=== PATIENT | female | born 1975 | race Caucasian/White ===

== ENCOUNTER 2024-05-31 21:45 | Emergency (ER) | payer OTHER, SELFPAY ==
[2024-05-31 21:47] VITALS: BP 162/75; PULSE 53; RESP 16; TEMP 36.9; O2SAT 94; BMI 36.3
--- NOTE | 2024-05-31 22:15 | ED.VIS.GI ---
HPI HPI - GI History of Present Illness Chief Complaint: Abd Pain Informant: patient Abdominal Pain/Flank Pain Onset: Days (3) Context: Gradual Onset Timing: Waxes and wanes Quality: Cramping Location: RLQ and LLQ Worsened by: Nothing Relieved by: - (Vomiting) Nausea/Vomiting/Emesis GI Symptom: Positive for Nausea and Vomiting Diarrhea/Melena/Hematochezia GI Symptom: Negative for Diarrhea, Melena or Hematochezia Associated Symptoms Associated Symptoms: Negative for Dysuria, Frequency or Hematuria Narrative Narrative: Patient presents with abdominal pain that has been getting worse for the last 3 days. Patient states it has been waxing and waning today. Patient states she went to [facility] emergency department earlier today. Patient states she had a CT scan done there of her abdomen pelvis which showed early small bowel obstruction. Patient was seen by general surgery in the emergency department there. General surgery said that since she was having stools in her colostomy, there was no bowel obstruction. Patient was discharged home. Patient was told to return if she had any worsening pain, nausea, or vomiting. Patient started having more nausea, vomiting, and abdominal pain. Patient did not want to go back to [facility] and was brought here by EMS. Patient denies any hematemesis or coffee-ground emesis. Patient denies any melena or hematochezia. [facility] Medical History (Updated 06/01/24 @ 01:[address] William Yo, ) Colostomy in place Colon cancer Home Medications ?Medication ?Instructions ?Recorded ?Last Taken ?Type empagliflozin 10 mg tablet 10 mg PO DAILY 05/31/24 Unknown History (Jardiance) ciprofloxacin HCl 500 mg tablet 500 mg PO BID #6 TABLETS 06/01/24 Unknown Rx dicyclomine 10 mg capsule 20 mg (2 x 10 mg) PO TIDAC #20 06/01/24 Unknown Rx CAPSULES ondansetron 4 mg disintegrating 4 mg PO Q8H PRN PRN Nausea #10 tabs 06/01/24 Unknown Rx tablet Allergy/AdvReac Type Severity Reaction Status Date / Time amoxicillin AdvReac Mild N/V Verified 05/31/24 21:54 Surgical History (Updated 05/31/24 @ 22:[address] William Yo, ) Hx of colostomy History of colon resection Social History Smoking Status: Never smoker ROS ROS ED Constitutional Constitutional ED: Denies chills or fever(s) Eyes Eyes: Denies blurry vision or change in vision ENT ENT ED: Denies rhinorrhea or sore throat Cardiovascular Cardiovascular: Denies chest pain or palpitations Respiratory/Chest Respiratory/Chest: Denies cough or dyspnea Gastrointestinal Gastrointestinal: Reports abdominal pain, nausea and vomiting; Denies diarrhea or melena Genitourinary Genitourinary ED: Denies dysuria or hematuria Musculoskeletal Musculoskeletal: Denies back pain or neck pain Integumentary Denies abscess or rash Neurologic Neurologic: Denies headache(s) or weakness Allergic/Immunologic Allergic/Immunologic ED: Denies mouth swelling or urticaria EXAM Physical Exam Const Vital Signs: 05/31/24 21:47 05/31/24 23:46 Temperature 98.5 F Temperature Source Oral Pulse Rate 53 L 43 L Respiratory Rate 16 16 Blood Pressure 162/75 H 154/73 H Blood Pressure Mean 104 100 Pulse Ox 94 97 Oxygen Delivery Method Room Air Positive well nourished and well developed General Appearance ED: well developed and NAD HEENT Reports moist mucous membranes Neck supple and no JVD Resp normal respiratory effort and clear to auscultation bilaterally Cardio regular rate and regular rhythm GI non-distended Palpation: soft and tender LLQ, RLQ and suprapubic; Negative for guarding or rebound tenderness present Extremity full ROM General Extremety ED: Negative for edema or tenderness General Extremity: Negative for edema Neuro CN's II-XII intact bilaterally, moves all extremities and no sensory deficits noted Sensorium / Orientation: alert Motor Exam: strength 5/5 throughout Psych mental status grossly normal MDM MDM MDM Narrative Medical decision making narrative: Differential diagnosis includes bowel obstruction, perforation, dehydration, urinary tract infection, electrolyte abnormality, and viral illness. CBC will be obtained to assess for leukocytosis and anemia. Comprehensive metabolic profile will be obtained to assess for hepatic function, renal function, and electrolyte abnormality. Urinalysis will be obtained to assess for urinary tract infection and hematuria. Patient had a serum hCG performed earlier today. I do not feel this needs to be repeated. Patient had a CT scan of her abdomen pelvis with IV contrast earlier today. Because of this, a noncontrast CT scan of the abdomen and pelvis will be obtained to assess for bowel obstruction and perforation. Lab Data Attestation: I reviewed the patient's lab results. Lab results narrative: CBC was reviewed. There is a mild leukocytosis of 14.0. The remainder was within normal limits. Comprehensive metabolic profile was reviewed. Glucose was mildly elevated at 140. The remainder was within normal limits. Urinalysis was reviewed. Urine ketones are 150. There are positive nitrates. Leukocyte esterase was 25. There is 1+ bacteria. There are 0 white blood cells noted. There are 0 epithelial cells noted. Labs: Laboratory Results - last 24 hr 05/31/24 05/31/24 22:03 22:42 WBC 14.0 H RBC 5.21 Hgb 15.0 Hct 45.5 MCV 87.3 MCH 28.8 MCHC 33.0 RDW Std Deviation 41.2 RDW Coeff of Juan M 12.9 Plt Count 255 MPV 11.5 Immature Gran % (Auto) 0.400 Neut % (Auto) 86.8 H Lymph % (Auto) 7.6 L [place] % (Auto) 4.1 Eos % (Auto) 0.9 Baso % (Auto) 0.2 Absolute Neuts (auto) 12.1 H Absolute Lymphs (auto) 1.06 Nucleated RBC % 0 Sodium 139 Potassium 3.6 Chloride 102 Carbon Dioxide 30.0 Anion Gap 7 BUN 9 Creatinine 0.79 Estim Creat Clear Calc 103.78 Est GFR (MDRD) Af Amer 100 Est GFR (MDRD) Non-Af 83 BUN/Creatinine Ratio 11.4 Glucose 140 H Calcium 9.2 Total Bilirubin 0.80 AST 24 ALT 35 Alkaline Phosphatase 101 Total Protein 7.3 Albumin 3.7 Globulin 3.6 Albumin/Globulin Ratio 1.0 Urine Color Yellow Urine Clarity Clear Urine pH 5.0 Ur Specific [place] 1.020 Urine Protein 30 H Urine Glucose (UA) 1000 H Urine Ketones 150 A* Urine Occult Blood Negative Urine Nitrite Positive H Urine Bilirubin 1 H Urine Urobilinogen 4 H Ur Leukocyte Esterase 25 H Urine RBC 0 SEEN Urine WBC 0 SEEN Ur Squamous Epith Cells 0 SEEN Urine Bacteria 1+ Urine Mucus 0 SEEN Radiography Diagnostic Testing: Clinical Impression(s) from Imaging Studies Abdomen/Pelvis CT 05/31/24 22:32 IMPRESSION: There is 17 cm abdominal wall hernia at the colostomy site containing multiple small bowel loops and part of the colon. There is wall thickening of mid ileal small bowel loops within the hernia sac suggesting inflammatory bowel disease. There is dilatation of small bowel loops in the proximal ileum and distal jejunum suggesting partial obstruction due to inflammatory bowel disease. Electronically Signed: Lillie Chase MD at 23:21 EDT , CT scan of the abdomen and pelvis was obtained. There is a 17 cm abdominal wall hernia at the colostomy site containing multiple small bowel loops. There is some wall thickening within the hernia suggesting inflammatory bowel disease. There is dilatation of small bowel loops in the proximal ileum and distal jejunum suggesting partial obstruction due to the inflammatory bowel disease. This was interpreted by the radiologist and was also independently reviewed by myself. Treatment and Re-Evaluation :: Patient is given IV fluids, Bentyl, and Zofran. Patient was given p.o. fluids and was able to tolerate them well. Patient is feeling better on reevaluation. I discussed the findings with the patient. Patient was advised that there is no indication for emergency surgery at this time. Patient was advised of her urine results. Patient will be given a prescription for a short course of Cipro pending culture results. Patient will be given prescriptions for Bentyl and Zofran. Patient was instructed to follow-up with her primary care physician and surgeon in 3 to 5 days. Patient was instructed to return if worse in any way. Patient understood and was agreeable with the plan. All questions were answered. Discharge Plan Triage Chief Complaint: Abd Pain ED Provider: William Yo Dx/Rx/DC Orders Clinical Impression: Inflammatory bowel diseases (IBD), Abdominal pain, Urinary tract infection Instructions: ED Abdominal Pain Unkn Cause Fem, ED Cystitis Female Adult Prescriptions: New ciprofloxacin HCl 500 mg tablet 500 mg PO BID Qty: 6 0RF ondansetron 4 mg tablet,disintegrating 4 mg PO Q8H PRN PRN (Reason: Nausea) Qty: 10 0RF dicyclomine 10 mg capsule 20 mg PO TIDAC Qty: 20 0RF No Action Jardiance 10 mg tablet 10 mg PO DAILY Primary Care Provider: Care Physician,No Primary Referrals: NOT,DEFINED [Non-Staff] - 3-5 Days Activity Restrictions/Additional Instructions: Follow-up with your primary care physician and surgeon in 3 to 5 days for reevaluation. Print Language: Jamaican Disposition Disposition: Home, Self Care
--- NOTE | 2024-05-31 22:32 | CT_ITS ---
INDICATION: Pain EXAMINATION: CT ABDOMEN AND PELVIS WITHOUT CONTRAST - CT Abdomen And Pelvis W/O Contrast Injection TECHNIQUE: Helically acquired images were obtained of the abdomen and pelvis without oral or IV contrast. The protocol utilizes one or more of the following dose reduction techniques: automated exposure control, adjustment of mA and/or kV according to patient size,and/or use of iterative reconstruction technique. IV Contrast dosage and agent: None. Oral contrast: None. RADIATION DOSAGE (If Supplied By Facility): CTDIvol = ( 19.33 ) mGy, DLP = ( 1028.89 ) mGycm COMPARISON: No relevant prior comparison study available FINDINGS: LOWER CHEST: Lung bases are clear. No cardiomegaly or pericardial effusion. LIVER: Homogeneous. No focal mass. GALLBLADDER AND BILIARY TREE: No calcified gallstones. No gallbladder distension or wall edema. No intra- or extrahepatic biliary ductal dilation. PANCREAS: No focal cystic or solid mass. SPLEEN: Normal size without focal cystic or solid mass. ADRENAL GLANDS: No nodules. KIDNEYS AND URETERS: Normal renal size and position. No hydronephrosis. PERITONEUM: No ascites or free air. No other fluid collection. BOWEL: No evidence of acute appendicitis. There is wall thickening of mid ileal small bowel loops within the hernia sac suggesting inflammatory bowel disease. There is dilatation of small bowel loops in the proximal ileum and distal jejunum suggesting partial obstruction due to inflammatory bowel disease. LYMPH NODES: No enlarged mesenteric or retroperitoneal lymph nodes. VESSELS: Aorta is non-dilated. URINARY BLADDER: Unremarkable. REPRODUCTIVE ORGANS: No pelvic masses. ABDOMINAL WALL: There is left lower quadrant colostomy. There is abdominal wall hernia at the colostomy site containing multiple small bowel loops and part of the colon. The hernia measures approximately 17 cm in diameter. There is wall thickening of mid ileal small bowel loops within the hernia sac suggesting inflammatory bowel disease. There is dilatation of small bowel loops in the proximal ileum and distal jejunum suggesting partial obstruction due to inflammatory bowel disease. BONES: No lytic or blastic abnormality. CT/Abdomen/Pelvis without Cont IMPRESSION: There is 17 cm abdominal wall hernia at the colostomy site containing multiple small bowel loops and part of the colon. There is wall thickening of mid ileal small bowel loops within the hernia sac suggesting inflammatory bowel disease. There is dilatation of small bowel loops in the proximal ileum and distal jejunum suggesting partial obstruction due to inflammatory bowel disease. Electronically Signed: Lillie Chase MD at 23:21 EDT ,
[2024-05-31 22:39] LABS: Absolute Lymphocyte Count 1.06 X10^3/uL (0.83-4.51); Absolute Neutrophil Count 12.1 X10^3/uL (2.0-7.7); Basophil# 0.03 X10^3/uL; Basophil% 0.2 % (0-1); Eosinophil# 0.13 X10^3/uL; Eosinophils% 0.9 % (0-5); Hematocrit 45.5 % (37-47); Lymphocyte # 1.06 X10^3/ul (0.83-4.51); Lymphocyte % 7.6 % (19-41); Mean Corpuscular Hgb 28.8 pg (27.0-32.0); Mean Corpuscular Volume 87.3 fL (81-99); Mean Platelet Vol. 11.5 fl (6.2-12.0); Monocyte# 0.58 X10^3/uL; Monocyte% 4.1 % (0-10); NRBC Flagged by Analyzer 0 % (0-5); Neutrophil # 12.13 X10^3/uL (2.7-7.7); Neutrophil % 86.8 % (47-70); Platelet Count 255 K/mm3 (150-450); RBC Distribution Width CV 12.9 % (11.6-14.6); RBC Distribution Width SD 41.2 fl (35.1-43.9); Red Blood Count 5.21 M/mm3 (4.2-5.4)
[2024-05-31 22:47] LABS: Mucous, Urine 0 SEEN /hpf (<or=2+); Red Blood Cells-Urine 0 SEEN /hpf (0-5); Squamous Epithelial Cells - UA 0 SEEN /hpf (5-10); White Blood Cells 0 SEEN /hpf (0-5)
[2024-05-31 22:48] LABS: Color, Urine Yellow (Yellow); Glucose, Dipstick 1000 mg/dl (Normal); Leukocyte Esterase-Dipstick 25 /ul (Negative); Nitrite-Dipstick Positive (Negative); Occult Blood-Urine Negative /ul (Negative); Protein-Dipstick 30 mg/dl (Negative); Urine Clarity Clear (Clear); Urine Urobilinogen 4 mg/dl (Normal)
[2024-05-31] MEDS: 0.9% Normal Saline (1000mL) 1,000 ML 999 ML IV (22:48)
[2024-05-31] MEDS: Ondansetron 4 MG/2 ML Vial IV (22:48)
[2024-05-31] MEDS: Dicyclomine 20 MG/2 ML Vial IM (22:48)
[2024-05-31 22:57] LABS: AST(SGOT) 24 U/L (15-37); Alanine Aminotransfer ALT/SGPT 35 U/L (13-56); Albumin, Serum 3.7 g/dL (3.2-5.0); Alkaline Phosphatase 101 U/L (45-117); Anion Gap 7 (5-15); BUN 9 mg/dL (7-18); BUN/Creat Ratio 11.4 RATIO (10-20); Calcium,Total 9.2 mg/dL (8.5-10.1); Chloride 102 mmol/L (98-107); Creatinine, Serum 0.79 mg/dL (0.55-1.02); EST Glomerular Filtration Rate 83 mL/min (>60); Est Glom Filt Rate - Afr Amer 100 mL/min (>60); Estimated Creatinine Clearance 103.78 ml/min; Globulin 3.6 g/dL (2.2-4.2); Glucose 140 mg/dL (74-106); Potassium 3.6 mmol/L (3.5-5.1); Protein, Total 7.3 g/dL (6.4-8.2); Sodium Level 139 mmol/L (136-145)
[2024-05-31 23:39] LABS: Urine Bilirubin Dipstick 1 mg/dL (Negative)
[2024-05-31 23:40] LABS: Bacteria 1+ /hpf (None Seen); Ketone-Dipstick 150 mg/dl (Negative)
[2024-05-31 23:46] VITALS: BP 154/73; PULSE 43; RESP 16; O2SAT 97
[2024-06-01 01:00] VITALS: BP 147/68; PULSE 52; RESP 16; O2SAT 95
[2024-06-01] MEDS: Ciprofloxacin 500 MG Tablet PO (01:40)
== END 2024-06-01 01:49 | disposition home or self-care (01) ==
PROVIDERS: Emergency Provider Emergency Medicine; Visit Provider Emergency Medicine
DX: R10.9 Unspecified abdominal pain (principal); Z93.3 Colostomy status; N39.0 Urinary tract infection, site not specified; R11.2 Nausea with vomiting, unspecified; K52.9 Noninfective gastroenteritis and colitis, unspecified; Z85.038 Personal history of other malignant neoplasm of large intestine
CPT/HCPCS: 74176; 80053; 81001; 85025; 87086; 87088; 96361; 96372; 96374; 99282; J7030; A4216; J2405